=== PATIENT | female | born 1965 | race Caucasian/White ===

== ENCOUNTER 2019-07-20 23:15 | Observation (INO) | payer OTHER ==
[~2019-07-20] VITALS: Ht 172.7 cm; Wt 147.6 kg
[~2019-07-20 23:15] MED LIST: ALBU90OI INH; AMOCLA875 PO; AMOX500 PO; AMOX875 PO; CRUTCH3 USE; DICL25ER PO; DOXY100 PO; HYDACE5 PO; HYDACE5325 PO; LEVSOD25 PO; MODA200 PO; OXYACE5T PO; SULTRISS PO
[2019-07-20 23:52] LABS: BASOPHILS ABSOLUTE AUTO 0.04 K/mm3 (0.00-0.23); BASOPHILS PERCENT AUTO 0 % (0-2); EOSINOPHILS ABSOLUTE AUTO 0.29 K/mm3 (0.00-0.68); EOSINOPHILS PERCENT AUTO 2 % (0-6); Hematocrit 46.1 % (33.0-51.0); Hemoglobin 14.8 g/dL (11.5-16.0); IMMATURE GRAN ABSOLUTE AUTO 0.05 K/mm3 (0.00-0.10); IMMATURE GRAN PERCENT AUTO 0 % (0-1); LYMPHOCYTES ABSOLUTE AUTO 3.82 K/mm3 (0.84-5.20); LYMPHOCYTES PERCENT AUTO 27 % (21-46); MONOCYTES ABSOLUTE AUTO 0.81 K/mm3 (0.16-1.47); MONOCYTES PERCENT AUTO 6 % (4-13); Mean Corpuscular HGB 29.1 pg (26.0-34.0); Mean Corpuscular HGB Conc 32.1 g/dL (31.5-36.5); Mean Corpuscular Volume 91 fL (80-100); Mean Platelet Volume 10.7 fL (9.1-12.4); NEUTROPHILS ABSOLUTE AUTO 9.12 K/mm3 (1.96-9.15); NEUTROPHILS PERCENT AUTO 65 % (41-73); Platelet Count 290 K/mm3 (150-400); RDW Coefficient Variation 13.4 % (11.7-14.2); RDW Standard Deviation 44.4 fL (35.1-46.3); Red Blood Cell Count 5.08 M/mm3 (3.80-5.20); White Blood Cell Count 14.13 K/mm3 (4.00-11.30)
[2019-07-21 00:13] LABS: Alanine Aminotransfer (ALT/SGP 32 U/L (12-78); Albumin, Blood 3.5 g/dL (3.4-5.0); Albumin/Globulin Ratio 0.6 (0.8-1.8); Alk Phos 135 U/L (50-136); Anion Gap 6 mmol/L (6-16); Aspartate Aminotrans (AST/SGOT 23 U/L (12-37); Bilirubin, Total 0.4 mg/dL (0.1-1.0); Blood Urea Nitrogen 14 mg/dL (8-24); Bun/Creatinine Ratio 29.1 (12.0-20.0); CO2, Blood 29 mmol/L (21-32); Calcium, Blood 9.5 mg/dL (8.5-10.1); Chloride, Blood 100 mmol/L (98-108); Creatinine, Blood 0.48 mg/dL (0.40-1.00); Globulin, Blood 5.6 g/dL (2.2-4.0); Glomerular Filtration Rate >60 (60-); Glucose, Blood 273 mg/dL (70-99); Potassium, Blood 4.1 mmol/L (3.5-5.5); Sodium, Blood 135 mmol/L (136-145); Total Protein, Blood 9.1 g/dL (6.4-8.2)
[2019-07-21 03:34] LABS: Source, Urine Clean Catch
[2019-07-21 03:36] LABS: Appearance, Urine Clear (Clear); Bilirubin, Urine Neg (Neg); Blood, Urine 1+ (Neg); Color, Urine Yellow (P-Yellow); Glucose Qualitative, Urine 4+ (Neg); Ketones, Urine 1+ (Neg); Leukocyte Esterase, Urine 1+ (Neg); Nitrite, Urine Neg (Neg); Protein, Urine 2+ (Neg); Urobilinogen, Urine NORM (Normal)
[2019-07-21 03:42] LABS: Bacteria Many /hpf; Mucus Light (0-Heavy); Red Blood Cells, Urine 0-2 /hpf (0-2); Squamous Epithelial Cells Mod /hpf (Few)
[2019-07-21] MEDS ORDERED: METFORMIN HCL1000 M1 PO (05:32)
[2019-07-21] MEDS ORDERED: INSULIN SC (05:32)
[2019-07-21] MEDS ORDERED: LEVOTHYROXINE SODIUM PO (05:33)
--- NOTE | 2019-07-21 07:58 | NUR ---
PT NEW ADMIT THIS SHIFT FOR ACUTE VICKY. PT REP PAIN DOM, NO C/O N/V. PT NPO SINCE ARRIVING TO FLOOR, SURGEON IN TO SEE PT THIS AM. REPORT GIVEN TO DAY RN.
[2019-07-21] MEDS ORDERED: BASAGLAR K100 UNIT/2 SC (10:52)
[2019-07-21] MEDS ORDERED: METFORMIN HCL500 MG PO (10:53)
[2019-07-21] MEDS ORDERED: GLIP10 PO (10:53)
[2019-07-21] MEDS ORDERED: SYNTHROID150 MC1 PO (10:54)
--- NOTE | 2019-07-21 21:38 | NUR ---
SPOKE TO DR STEPHENSON R/T PATIENT REPORTS OF PAIN MANAGEMENT NOT BEING EFFECTIVE. NEW ORDERS FOR DILAUDID AND ONE TIME DOSE OF TORODOL GIVEN. WILL ADMINISTER AND MONITOR FOR EFFECT
--- NOTE | 2019-07-22 04:07 | NUR ---
SHIFT SUMMARY PT AA0X4, VSS. PATIENT HAS BEEN RESTING IN BED, TOLERATING NEW PAIN MEDS WELL. STATES RELIEF. NPO SINCE MIDNIGHT, PT HAS BEEN VOIDING DURING SHIFT. PAIN IS LOCATED IN HER RIGHT FLANK/ BACK. PLAN IS TO POSSIBLY GO TO OR AT SOME POINT TODAY.
[2019-07-22 04:53] LABS: BASOPHILS ABSOLUTE AUTO 0.03 K/mm3 (0.00-0.23); BASOPHILS PERCENT AUTO 0 % (0-2); EOSINOPHILS ABSOLUTE AUTO 0.26 K/mm3 (0.00-0.68); EOSINOPHILS PERCENT AUTO 3 % (0-6); Hematocrit 40.3 % (33.0-51.0); IMMATURE GRAN ABSOLUTE AUTO 0.03 K/mm3 (0.00-0.10); IMMATURE GRAN PERCENT AUTO 0 % (0-1); LYMPHOCYTES ABSOLUTE AUTO 3.58 K/mm3 (0.84-5.20); LYMPHOCYTES PERCENT AUTO 36 % (21-46); MONOCYTES ABSOLUTE AUTO 0.62 K/mm3 (0.16-1.47); MONOCYTES PERCENT AUTO 6 % (4-13); Mean Corpuscular HGB 29.3 pg (26.0-34.0); Mean Corpuscular HGB Conc 32.3 g/dL (31.5-36.5); Mean Corpuscular Volume 91 fL (80-100); Mean Platelet Volume 10.5 fL (9.1-12.4); NEUTROPHILS ABSOLUTE AUTO 5.47 K/mm3 (1.96-9.15); NEUTROPHILS PERCENT AUTO 55 % (41-73); Platelet Count 245 K/mm3 (150-400); RDW Coefficient Variation 13.5 % (11.7-14.2); RDW Standard Deviation 45.3 fL (35.1-46.3); Red Blood Cell Count 4.43 M/mm3 (3.80-5.20); White Blood Cell Count 9.99 K/mm3 (4.00-11.30)
[2019-07-22 05:12] LABS: Alanine Aminotransfer (ALT/SGP 32 U/L (12-78); Albumin, Blood 2.9 g/dL (3.4-5.0); Albumin/Globulin Ratio 0.6 (0.8-1.8); Alk Phos 99 U/L (50-136); Anion Gap 6 mmol/L (6-16); Aspartate Aminotrans (AST/SGOT 23 U/L (12-37); Bilirubin, Total 0.7 mg/dL (0.1-1.0); Blood Urea Nitrogen 10 mg/dL (8-24); Bun/Creatinine Ratio 21.3 (12.0-20.0); CO2, Blood 28 mmol/L (21-32); Calcium, Blood 9.1 mg/dL (8.5-10.1); Chloride, Blood 104 mmol/L (98-108); Creatinine, Blood 0.47 mg/dL (0.40-1.00); Globulin, Blood 4.7 g/dL (2.2-4.0); Glomerular Filtration Rate >60 (60-); Glucose, Blood 229 mg/dL (70-99); Potassium, Blood 4.1 mmol/L (3.5-5.5); Sodium, Blood 138 mmol/L (136-145); Total Protein, Blood 7.6 g/dL (6.4-8.2)
--- NOTE | 2019-07-22 11:19 | NUR ---
INTO [facility] VIA Scrip[facility]t. HISTORY AND ALLERGIES REVIEWED. NPO STATUS CONFIRMED. LUNG SOUNDS DISTANT. SATS>90% ON RA. Surgical site prepped with 2% Chlorhexidine cloth wipe.
--- NOTE | 2019-07-22 11:24 | NUR ---
YEAST LIKE RASH NOTED UNDER PT PANUS WHEN WIPING ABDOMEN WITH CHLORHEXIDINE.
--- NOTE | 2019-07-22 16:21 | NUR ---
DENTURES SENT TO ROOM AFTER PACU STAY.
--- NOTE | 2019-07-22 18:11 | NUR ---
SHIFT SUMMARY PT A&OX4, VSS, S/P VICKY WITH 5 LAP SITES CDI. PAIN MANAGED WITH 0.5 - 1.0 MG DILAUDID Q3 PRN. DOM PO DIET, DENIES N&V AT THIS TIME. AMBULATED TO BRP WITH SBA. VOIDING WELL. FAMILY AT BEDSIDE. WILL REPORT TO ONCOMING NOC RN.
--- NOTE | 2019-07-23 04:09 | NUR ---
SHIFT SUMMARY PT IS A/O X4. AMBULATES IND. IN BEDROOM WITH MINIMAL ASSIST AT TIMES. PT IS TOLERATING PO INTAKE AND IS VOIDING AND PASSING GAS. BENITEZ DRAIN DRESSING WAS CHANGED D/T SATURATION. PAIN HAS BEEN MANAGED WITH 1.5-1MG DILAUDED PRN, SEE EMAR. DAUGHTER STAYED THE NIGHT IN PT ROOM. ASSISTED WITH ADL'S PRN.
[2019-07-23] MEDS ORDERED: HYDR1TAB94 PO (09:03)
--- NOTE | 2019-07-23 09:23 | NUR ---
0920 - 5 MG NORCO GIVEN TO PT JUST PT WAS TAKEN OUT OF COMPUTER FOR DISCHARGE HOME, COMPUTER WOULD NOT LET ME DOCUMENT GIVEN. VERIFIED WITH DEION RAYO RN.
--- NOTE | 2019-07-23 09:28 | NUR ---
DISCHARGE SUMMARY PT A&OX4, VSS, LEFT FLOOR VIA WC WITH DAUGHTER TO GO HOME WITH PERSONAL POSSESSIONS INCLUDING DC PACKET AND 1 NORCO SCRIPT. DC INSTRUCTIONS PROVIDED. PT REPORTED UNDERSTANDING THOSE INSTRUCTIONS INCLUDING SHOWER OKAY, NO TUB/JACUZZI, LEAVE STERIS IN PLACE- THEY WILL COME OFF ON THEIR OWN IN 7-10 DAYS OTHERWISE SURGEON WILL REMOVE THEM AT 2 WEEK APPT. IV DC'D.
== END 2019-07-23 09:16 | disposition home or self-care (01) ==
LOC: ER 23:15 → MEDS 23:16 → SURS 23:16 → MEDS 07-21 05:04 → ER 07-21 05:04 → MEDS 07-21 06:00 → SURS 07-21 06:00
PROVIDERS: Emergency Medicine; ADMIT Surgery
PROC: 0FT44ZZ Resection of Gallbladder, Percutaneous Endoscopic Approach (ICD-10-PCS; principal; 2019-07-22 11:30)
DX: K80.00 Calculus of gallbladder with acute cholecystitis without obstruction (principal); E11.9 Type 2 diabetes mellitus without complications; E03.9 Hypothyroidism, unspecified; G47.30 Sleep apnea, unspecified; E66.01 Morbid (severe) obesity due to excess calories; Z68.43 Body mass index [BMI] 50.0-59.9, adult; Z79.4 Long term (current) use of insulin; Z88.1 Allergy status to other antibiotic agents; Z79.899 Other long term (current) drug therapy
CPT/HCPCS: 36415; 74176; 76705; 80053; 81001; 82947; 83690; 85025; 87086; 88304; 93005; 93010; 94762; 96361; 96365; 96375; 96376; 99285-25; A9270-GY; G0378; J0694; J1170; J1815; J1885; J2250; J2270; J2405; J2543; J2704; J3010; J7030; J7120

== ENCOUNTER → 2020-05-07 | Outpatient (CLI) | payer OTHER ==
[~2020-05-07] MED LIST changes: +BASAGLAR K100 UNIT/2 SC; +GLIP10 PO; +HYDR1TAB94 PO; +INSULIN SC; +LEVOTHYROXINE SODIUM PO; +METFORMIN HCL1000 M1 PO; +METFORMIN HCL500 MG PO; +SYNTHROID150 MC1 PO
== END | disposition home or self-care (01) ==
LOC: LAB SHORT 14:26 → LAB 14:26
DX: L04.8 Acute lymphadenitis of other sites (principal)
CPT/HCPCS: 87081

== ENCOUNTER 2021-01-28 12:53 | Emergency (ER) | payer OTHER ==
[~2021-01-28] VITALS: Ht 172.7 cm; Wt 170.1 kg
[~2021-01-28 12:53] MED LIST changes: +BASAGLAR K100 UNIT/1 SC; -BASAGLAR K100 UNIT/2 SC; +Bactrim Ds Tab1 EACH PO; +HUMALOG JU100 UNIT/2; +Norco 5-325 Ta1 EACH PO; +Percocet 5-3251 EACH PO
[2021-01-28 13:21] LABS: BASOPHILS ABSOLUTE AUTO 0.03 K/mm3 (0.00-0.23); BASOPHILS PERCENT AUTO 0 % (0-2); EOSINOPHILS PERCENT AUTO 1 % (0-6); Hematocrit 40.9 % (33.0-51.0); Hemoglobin 13.1 g/dL (11.5-16.0); IMMATURE GRAN ABSOLUTE AUTO 0.03 K/mm3 (0.00-0.10); IMMATURE GRAN PERCENT AUTO 0 % (0-1); LYMPHOCYTES ABSOLUTE AUTO 3.04 K/mm3 (0.84-5.20); LYMPHOCYTES PERCENT AUTO 27 % (21-46); MONOCYTES ABSOLUTE AUTO 0.77 K/mm3 (0.16-1.47); MONOCYTES PERCENT AUTO 7 % (4-13); Mean Corpuscular Volume 84 fL (80-100); Mean Platelet Volume 9.8 fL (9.1-12.4); NEUTROPHILS ABSOLUTE AUTO 7.47 K/mm3 (1.96-9.15); NEUTROPHILS PERCENT AUTO 65 % (41-73); Platelet Count 326 K/mm3 (150-400); RDW Coefficient Variation 14.9 % (11.7-14.2); RDW Standard Deviation 45.7 fL (35.1-46.3); Red Blood Cell Count 4.86 M/mm3 (3.80-5.20); White Blood Cell Count 11.44 K/mm3 (4.00-11.30)
[2021-01-28 13:41] LABS: Alanine Aminotransfer (ALT/SGP 18 U/L (12-78); Albumin/Globulin Ratio 0.4 (0.8-1.8); Alk Phos 123 U/L (50-136); Anion Gap 5 mmol/L (6-16); Aspartate Aminotrans (AST/SGOT 16 U/L (12-37); Bilirubin, Total 0.5 mg/dL (0.1-1.0); Blood Urea Nitrogen 14 mg/dL (8-24); Bun/Creatinine Ratio 18.1 (12.0-20.0); CO2, Blood 25 mmol/L (21-32); Calcium, Blood 10.3 mg/dL (8.5-10.1); Chloride, Blood 100 mmol/L (98-108); Creatinine, Blood 0.78 mg/dL (0.40-1.00); Globulin, Blood 7.2 g/dL (2.2-4.0); Glomerular Filtration Rate >60 (60-); Glucose, Blood 245 mg/dL (70-99); Potassium, Blood 4.2 mmol/L (3.5-5.5); Sodium, Blood 130 mmol/L (136-145); Total Protein, Blood 10.2 g/dL (6.4-8.2)
[2021-01-28] MEDS ORDERED: Percocet 5-3251 EACH PO (18:27)
== END 2021-01-28 18:33 | disposition home or self-care (01) ==
LOC: ER 12:53
PROVIDERS: Physician Assistant
DX: E11.621 Type 2 diabetes mellitus with foot ulcer (principal); L97.529 Non-pressure chronic ulcer of other part of left foot with unspecified severity; L03.116 Cellulitis of left lower limb; Z91.030 Bee allergy status; Z88.1 Allergy status to other antibiotic agents; Z79.4 Long term (current) use of insulin
CPT/HCPCS: 36415; 80053; 85025; 99283

== ENCOUNTER 2021-05-09 11:43 | Emergency (ER) | payer OTHER ==
[~2021-05-09] VITALS: Ht 170.2 cm; Wt 158.8 kg
[~2021-05-09 11:43] MED LIST changes: +BACTRIM DS TAB1 EAC6 PO
[2021-05-09 12:36] LABS: BASOPHILS ABSOLUTE AUTO 0.04 K/mm3 (0.00-0.23); BASOPHILS PERCENT AUTO 0 % (0-2); EOSINOPHILS PERCENT AUTO 0 % (0-6); Hematocrit 38.3 % (33.0-51.0); Hemoglobin 12.6 g/dL (11.5-16.0); IMMATURE GRAN ABSOLUTE AUTO 0.09 K/mm3 (0.00-0.10); IMMATURE GRAN PERCENT AUTO 1 % (0-1); LYMPHOCYTES ABSOLUTE AUTO 1.57 K/mm3 (0.84-5.20); LYMPHOCYTES PERCENT AUTO 11 % (21-46); MONOCYTES ABSOLUTE AUTO 1.08 K/mm3 (0.16-1.47); MONOCYTES PERCENT AUTO 7 % (4-13); Mean Corpuscular HGB 26.9 pg (26.0-34.0); Mean Corpuscular HGB Conc 32.9 g/dL (31.5-36.5); Mean Corpuscular Volume 82 fL (80-100); NEUTROPHILS ABSOLUTE AUTO 11.91 K/mm3 (1.96-9.15); NEUTROPHILS PERCENT AUTO 81 % (41-73); Platelet Count 185 K/mm3 (150-400); RDW Coefficient Variation 15.3 % (11.7-14.2); RDW Standard Deviation 45.7 fL (35.1-46.3); Red Blood Cell Count 4.68 M/mm3 (3.80-5.20); White Blood Cell Count 14.69 K/mm3 (4.00-11.30)
[2021-05-09 12:49] LABS: Alanine Aminotransfer (ALT/SGP 21 U/L (12-78); Albumin, Blood 2.6 g/dL (3.4-5.0); Albumin/Globulin Ratio 0.4 (0.8-1.8); Alk Phos 100 U/L (50-136); Anion Gap 10 mmol/L (6-16); Aspartate Aminotrans (AST/SGOT 40 U/L (12-37); Bilirubin, Total 0.6 mg/dL (0.1-1.0); Blood Urea Nitrogen 16 mg/dL (8-24); Bun/Creatinine Ratio 21.3 (12.0-20.0); CO2, Blood 25 mmol/L (21-32); Calcium, Blood 8.7 mg/dL (8.5-10.1); Chloride, Blood 92 mmol/L (98-108); Creatinine, Blood 0.75 mg/dL (0.40-1.00); Globulin, Blood 6.3 g/dL (2.2-4.0); Glomerular Filtration Rate >60 (60-); Glucose, Blood 163 mg/dL (70-99); Potassium, Blood 3.4 mmol/L (3.5-5.5); Sodium, Blood 127 mmol/L (136-145); Total Protein, Blood 8.9 g/dL (6.4-8.2)
[2021-05-10] MEDS ORDERED: GLIP10ER PO (19:25)
[2021-05-10] MEDS ORDERED: Oxybutynin Chlor5 M1 PO (19:25)
== END 2021-05-09 15:19 | disposition home or self-care (01) ==
LOC: ER 11:43
PROVIDERS: Emergency Medicine
DX: E11.621 Type 2 diabetes mellitus with foot ulcer (principal); L97.529 Non-pressure chronic ulcer of other part of left foot with unspecified severity; B96.89 Other specified bacterial agents as the cause of diseases classified elsewhere; E03.9 Hypothyroidism, unspecified; Z91.030 Bee allergy status; Z88.1 Allergy status to other antibiotic agents; Z79.899 Other long term (current) drug therapy; Z79.4 Long term (current) use of insulin
CPT/HCPCS: 36415; 80053; 85025; 96365; 96366; 99281-25; A9270; J3370; J7050

== ENCOUNTER 2021-05-10 17:07 | Inpatient (IN) | payer OTHER ==
[~2021-05-10] VITALS: Ht 170.2 cm; Wt 157.0 kg
[2021-05-10 18:09] LABS: BASOPHILS ABSOLUTE AUTO 0.04 K/mm3 (0.00-0.23); BASOPHILS PERCENT AUTO 0 % (0-2); EOSINOPHILS PERCENT AUTO 0 % (0-6); Hematocrit 38.4 % (33.0-51.0); Hemoglobin 12.7 g/dL (11.5-16.0); IMMATURE GRAN ABSOLUTE AUTO 0.09 K/mm3 (0.00-0.10); IMMATURE GRAN PERCENT AUTO 1 % (0-1); LYMPHOCYTES PERCENT AUTO 13 % (21-46); MONOCYTES ABSOLUTE AUTO 1.11 K/mm3 (0.16-1.47); MONOCYTES PERCENT AUTO 7 % (4-13); Mean Corpuscular HGB 27.1 pg (26.0-34.0); Mean Corpuscular HGB Conc 33.1 g/dL (31.5-36.5); Mean Corpuscular Volume 82 fL (80-100); Mean Platelet Volume 11.4 fL (9.1-12.4); NEUTROPHILS PERCENT AUTO 79 % (41-73); Platelet Count 206 K/mm3 (150-400); RDW Coefficient Variation 15.7 % (11.7-14.2); RDW Standard Deviation 46.8 fL (35.1-46.3); Red Blood Cell Count 4.68 M/mm3 (3.80-5.20); White Blood Cell Count 15.64 K/mm3 (4.00-11.30)
[2021-05-10 18:18] LABS: Alanine Aminotransfer (ALT/SGP 30 U/L (12-78); Albumin, Blood 2.3 g/dL (3.4-5.0); Albumin/Globulin Ratio 0.4 (0.8-1.8); Alk Phos 110 U/L (50-136); Anion Gap 10 mmol/L (6-16); Aspartate Aminotrans (AST/SGOT 66 U/L (12-37); Bilirubin, Total 0.9 mg/dL (0.1-1.0); Blood Urea Nitrogen 11 mg/dL (8-24); Bun/Creatinine Ratio 12.8 (12.0-20.0); CO2, Blood 22 mmol/L (21-32); Calcium, Blood 8.9 mg/dL (8.5-10.1); Chloride, Blood 93 mmol/L (98-108); Creatinine, Blood 0.86 mg/dL (0.40-1.00); Globulin, Blood 6.4 g/dL (2.2-4.0); Glomerular Filtration Rate >60 (60-); Glucose, Blood 101 mg/dL (70-99); Potassium, Blood 3.6 mmol/L (3.5-5.5); Sodium, Blood 125 mmol/L (136-145); Total Protein, Blood 8.7 g/dL (6.4-8.2)
[2021-05-10] MEDS ORDERED: Oxybutynin Chlor5 M1 PO (19:25)
[2021-05-10] MEDS ORDERED: GLIP10ER PO (19:25)
[2021-05-10 21:37] LABS: SARS-Cov-2 (COVID-19) PCR, MMC NEGATIVE (NEGATIVE)
[2021-05-11 00:01] LABS: Source, Urine Clean Catch
[2021-05-11 00:03] LABS: Bilirubin, Urine Neg (Neg); Blood, Urine 5+ (Neg); Glucose Qualitative, Urine Neg (Neg); Ketones, Urine Neg (Neg); Leukocyte Esterase, Urine 1+ (Neg); Nitrite, Urine Neg (Neg); Protein, Urine 2+ (Neg); Urobilinogen, Urine 2+ (Normal)
[2021-05-11 00:18] LABS: Appearance, Urine Hazy (Clear); Bacteria Mod /hpf; Color, Urine Yellow (P-Yellow); Squamous Epithelial Cells Many /hpf (Few)
[2021-05-11 04:49] LABS: BASOPHILS ABSOLUTE AUTO 0.04 K/mm3 (0.00-0.23); BASOPHILS PERCENT AUTO 0 % (0-2); EOSINOPHILS PERCENT AUTO 0 % (0-6); Hematocrit 35.5 % (33.0-51.0); Hemoglobin 11.6 g/dL (11.5-16.0); IMMATURE GRAN ABSOLUTE AUTO 0.11 K/mm3 (0.00-0.10); IMMATURE GRAN PERCENT AUTO 1 % (0-1); LYMPHOCYTES ABSOLUTE AUTO 2.82 K/mm3 (0.84-5.20); LYMPHOCYTES PERCENT AUTO 18 % (21-46); MONOCYTES ABSOLUTE AUTO 1.21 K/mm3 (0.16-1.47); MONOCYTES PERCENT AUTO 8 % (4-13); Mean Corpuscular HGB 26.9 pg (26.0-34.0); Mean Corpuscular HGB Conc 32.7 g/dL (31.5-36.5); Mean Corpuscular Volume 82 fL (80-100); NEUTROPHILS ABSOLUTE AUTO 11.77 K/mm3 (1.96-9.15); NEUTROPHILS PERCENT AUTO 74 % (41-73); Platelet Count 229 K/mm3 (150-400); RDW Coefficient Variation 15.5 % (11.7-14.2); RDW Standard Deviation 46.9 fL (35.1-46.3); Red Blood Cell Count 4.32 M/mm3 (3.80-5.20); White Blood Cell Count 15.95 K/mm3 (4.00-11.30)
[2021-05-11 05:15] LABS: Alanine Aminotransfer (ALT/SGP 32 U/L (12-78); Albumin, Blood 2.2 g/dL (3.4-5.0); Albumin/Globulin Ratio 0.4 (0.8-1.8); Alk Phos 107 U/L (50-136); Anion Gap 9 mmol/L (6-16); Aspartate Aminotrans (AST/SGOT 64 U/L (12-37); Bilirubin, Total 0.7 mg/dL (0.1-1.0); Blood Urea Nitrogen 10 mg/dL (8-24); Bun/Creatinine Ratio 11.3 (12.0-20.0); CO2, Blood 26 mmol/L (21-32); Calcium, Blood 8.3 mg/dL (8.5-10.1); Chloride, Blood 93 mmol/L (98-108); Creatinine, Blood 0.88 mg/dL (0.40-1.00); Globulin, Blood 6.2 g/dL (2.2-4.0); Glomerular Filtration Rate >60 (60-); Glucose, Blood 83 mg/dL (70-99); Potassium, Blood 3.4 mmol/L (3.5-5.5); Sodium, Blood 128 mmol/L (136-145); Thyroid Stimulating Hormone 0.134 uIU/mL (0.360-4.800); Total Protein, Blood 8.4 g/dL (6.4-8.2)
--- NOTE | 2021-05-11 05:57 | NUR ---
SHIFT SUMMARY PT AAOX4. REQUIRED 1-2 PERSON ASSIST TO BEDSIDE COMMODE. PT HAS LOWER EXTREMITIES WEAKNESS. RECEIVING ANTIBIOTICS FOR CELLULITIS. NO SIGNIFICANT CHANGES THROUGHOUT SHIFT.
--- NOTE | 2021-05-11 18:45 | NUR ---
SHIFT SUMMARY PT UP TO BSC SEVERAL TIMES TODAY. REPORTS BACK PAIN THAT HAS ONLY DEVELOPED SINCE INFECTION OF L 2ND TOE. STATES MUCH WEAKER THAN NORMAL WELL. POOR APPETITE PER PT. REPORTS NOT BEING ABLE TO LAY DOWN FULLY DUE TO BACK PT AND FEELING SOB. DRESSING APPLIED TO L TOE FOR PTS COMFORT BUT REMOVED BY DR. RAPHAEL WHEN HE ARRIVED TO LOOK AT IT. PT REPORTS PLAN IS TO REMOVE TOE ON MONDAY.
[2021-05-12 05:00] LABS: BASOPHILS ABSOLUTE AUTO 0.03 K/mm3 (0.00-0.23); BASOPHILS PERCENT AUTO 0 % (0-2); EOSINOPHILS ABSOLUTE AUTO 0.01 K/mm3 (0.00-0.68); EOSINOPHILS PERCENT AUTO 0 % (0-6); Hematocrit 34.7 % (33.0-51.0); Hemoglobin 11.1 g/dL (11.5-16.0); Mean Corpuscular HGB 26.5 pg (26.0-34.0); Mean Corpuscular Volume 83 fL (80-100); Platelet Count 221 K/mm3 (150-400); RDW Coefficient Variation 15.8 % (11.7-14.2); RDW Standard Deviation 47.8 fL (35.1-46.3); Red Blood Cell Count 4.19 M/mm3 (3.80-5.20); White Blood Cell Count 14.14 K/mm3 (4.00-11.30)
[2021-05-12 05:02] LABS: IMMATURE GRAN ABSOLUTE AUTO 0.17 K/mm3 (0.00-0.10); IMMATURE GRAN PERCENT AUTO 1 % (0-1); LYMPHOCYTES ABSOLUTE AUTO 3.38 K/mm3 (0.84-5.20); LYMPHOCYTES PERCENT AUTO 24 % (21-46); MONOCYTES PERCENT AUTO 8 % (4-13); NEUTROPHILS ABSOLUTE AUTO 9.45 K/mm3 (1.96-9.15); NEUTROPHILS PERCENT AUTO 67 % (41-73)
[2021-05-12 05:18] LABS: Anion Gap 10 mmol/L (6-16); Blood Urea Nitrogen 10 mg/dL (8-24); CO2, Blood 26 mmol/L (21-32); Chloride, Blood 95 mmol/L (98-108); Creatinine, Blood 0.77 mg/dL (0.40-1.00); Glomerular Filtration Rate >60 (60-); Glucose, Blood 136 mg/dL (70-99); Phosphorus, Blood 3.5 mg/dL (2.5-4.9); Potassium, Blood 3.7 mmol/L (3.5-5.5); Sodium, Blood 131 mmol/L (136-145)
--- NOTE | 2021-05-12 12:30 | NUR ---
TENTATIVE SURGERY TO L 2ND TOE THIS AFTERNOON. SPOKE WITH DR. RAPHAEL WITH ANTICIPATION FOR SURGERY. NOTIFIED PT AND SHE WAS RELIEVED TO KNOW THE PLAN
--- NOTE | 2021-05-12 15:30 | NUR ---
PT TRANSFERRED TO [facility] VIA BED FROM FLOOR. History, Chart, Medications and Allergies reviewed before start of procedure. Lungs clear T/O to Auscultation. Patient confirms NPO status and agrees with scheduled surgery. Pre-Op teaching done. Pt verbalizes understanding.
--- NOTE | 2021-05-12 19:00 | NUR ---
ASSUMED CARE RECEIVED REPORT FROM [place]. PT RESTING, IN NAD. NO ACUTE NEEDS ASSESSED AT THIS TIME. CALL LIGHT, POSSESSIONS IN REACH, BED IN LOW AND LOCKED POSITION WITH ALARMS ON. DRSG TO LT FOOT C/D/I, NO DRAINAGE NOTED; PT DROWSY, BUT AROUSABLE. IV REMOVED PER PT REQUEST.
--- NOTE | 2021-05-12 19:38 | NUR ---
SHIFT SUMMARY PT TO SURGERY THIS AFTERNOON AT APPROX 1530 BY BED AND RETURNED AT 1830. VITAL SIGNS STARTED. PT REQUESTING BED BRUNNER IMMEDIATELY AND CALLING HER FAMILY. DRESSING INTACT TO L FOOT WITH NO BREAKTHROUGH DRAINAGE NOTED.
--- NOTE | 2021-05-13 00:06 | NUR ---
SPOKE TO DR. JETT REGARDING PT'S C/O PAIN AND REQUEST FOR FENTANYL PATCH. ORDERS RECEIVED. SHORTLY AFTER ORDERS WERE ENTERED, THIS RN CALLED BY JONATHAN, PHARMACIST, TO CLARIFY. STATED THAT PT IS CONSIDERED OPIOID NAIVE, AND THAT MEDICATION IS CONTRAINDICATED. ORDERS CANCELLED PER PHARMACIST.
[2021-05-13 05:49] LABS: BASOPHILS ABSOLUTE AUTO 0.02 K/mm3 (0.00-0.23); BASOPHILS PERCENT AUTO 0 % (0-2); EOSINOPHILS PERCENT AUTO 0 % (0-6); Hematocrit 31.2 % (33.0-51.0); Hemoglobin 10.2 g/dL (11.5-16.0); Mean Corpuscular HGB 26.8 pg (26.0-34.0); Mean Corpuscular HGB Conc 32.7 g/dL (31.5-36.5); Mean Corpuscular Volume 82 fL (80-100); Mean Platelet Volume 11.1 fL (9.1-12.4); Platelet Count 255 K/mm3 (150-400); RDW Coefficient Variation 15.9 % (11.7-14.2); RDW Standard Deviation 47.6 fL (35.1-46.3); White Blood Cell Count 9.72 K/mm3 (4.00-11.30)
[2021-05-13 05:50] LABS: IMMATURE GRAN ABSOLUTE AUTO 0.16 K/mm3 (0.00-0.10); IMMATURE GRAN PERCENT AUTO 2 % (0-1); LYMPHOCYTES ABSOLUTE AUTO 1.71 K/mm3 (0.84-5.20); LYMPHOCYTES PERCENT AUTO 18 % (21-46); MONOCYTES ABSOLUTE AUTO 0.69 K/mm3 (0.16-1.47); MONOCYTES PERCENT AUTO 7 % (4-13); NEUTROPHILS ABSOLUTE AUTO 7.14 K/mm3 (1.96-9.15); NEUTROPHILS PERCENT AUTO 74 % (41-73)
[2021-05-13 06:13] LABS: Anion Gap 7 mmol/L (6-16); Blood Urea Nitrogen 13 mg/dL (8-24); Bun/Creatinine Ratio 19.1 (12.0-20.0); CO2, Blood 24 mmol/L (21-32); Calcium, Blood 8.1 mg/dL (8.5-10.1); Chloride, Blood 98 mmol/L (98-108); Creatinine, Blood 0.68 mg/dL (0.40-1.00); Glomerular Filtration Rate >60 (60-); Glucose, Blood 290 mg/dL (70-99); Potassium, Blood 4.3 mmol/L (3.5-5.5); Sodium, Blood 129 mmol/L (136-145)
--- NOTE | 2021-05-13 06:41 | NUR ---
SHIFT SUMMARY PT RESTING, IN NAD. NO ACUTE CONCERNS TO REPORT OVERNIGHT, APPEARED TO SLEEP ON AND OFF. POD 1 LT 2ND TOE AMPUTATION. DRSG REMAINS C/D/I, NO DRAINAGE NOTED, SKIN PINK AND WARM, CAP REFILL <3 SECONDS. SENSATION INTACT. PAIN MANAGED WITH MEDS PER EMAR,WITH GOOD EFFECT. VS REVIEWED,WNL, BP'S AND O2 SATS STABLE. PT DENIES NEEDS AT THIS TIME. CALL LIGHT, POSSESSIONS IN REACH, BED IN LOW AND LOCKED POSITION WITH ALARMS ON. IVF INFUSING ORDERED. WILL REPORT OFF TO ONCOMING RN.
[2021-05-13 07:40] LABS: BAND PERCENT MAN 1 % (0-8); BASOPHILS PERCENT MAN 0 % (0-2); EOSINOPHILS PERCENT MAN 0 % (0-6); LYMPHOCYTES ABSOLUTE MAN 1.94 K/mm3 (0.84-5.20); LYMPHOCYTES PERCENT MAN 20 % (21-46); MONOCYTES ABSOLUTE MAN 0.97 K/mm3 (0.16-1.47); MONOCYTES PERCENT MAN 10 % (4-13); SEG NEUTROPHILS PERCENT MAN 69 % (41-73); TOTAL CELLS COUNTED 100
--- NOTE | 2021-05-13 17:17 | NUR ---
SHIFT SUMMARY PT SITTING UP IN BED MOST OF DAY. REPORTS LOWER BACK DISCOMFORT CONTINUES. KPAD APPLIED THIS AFTERNOON PER HER REQUEST. DRESSING TO L TOE REPLACED BY DR. RAPHAEL TODAY WITH INSTRUCTIONS GIVEN TO PT ON HOME CARE. DID HAVE STRIKE THROUGH DRAINAGE AFTER MD CHANGED DRESSING AND WAS REINFORCED. WT BEARING CHANGED AND TRANSFERRED TO COMMODE TO VOID. DISCHARGE PLANNED WHEN IV MEDS READY FOR HOME USE.
--- NOTE | 2021-05-13 19:00 | NUR ---
ASSUMED CARE RECEIVED REPORT FROM [place]. PT RESTING, IN NAD. NO ACUTE NEEDS ASSESSED AT THIS TIME. CALL LIGHT, POSSESSIONS IN REACH, BED IN LOW AND LOCKED POSITION WITH ALARMS ON.
--- NOTE | 2021-05-14 00:10 | NUR ---
THIS RN IN PT ROOM INQUIRING PT REGARDING USE OF PAIN PATCHES AT HOME. PT STATES "I USE IT ON MY KNEE, AND IT COMES IN A WHITE BOX FROM THE [facility]." WHEN ASKED ABOUT THE STRENGTH OF THE MEDICATION, PT WAS UNSURE OF DOSAGE STRENGTH. ON FURTHER QUESTIONING, PT RECALLS THAT PATCH WAS SOFT AND WHITE, APPEARS TO RECALL THE NAME "LIDOCAINE" THE PATCH THAT SHE USES AT HOME. VERIFIED WITH PT'S HOME MEDICATION RECONCILIATION. WILL INFORM DAY RN OF PT'S REQUEST.
--- NOTE | 2021-05-14 04:21 | NUR ---
SHIFT SUMMARY PT RESTING, IN NAD. NO ACUTE CONCERNS TO REPORT OVERNIGHT. PAIN MANAGED WITH MEDS PER EMAR, WITH GOOD EFFECT. DRSG TO LT FOOT REMAINS C/D/I, NO DRAINAGE NOTED. SKIN PINK AND WARM, SENSATION INTACT, CAP REFILL <3 SECONDS. WBAT TO LLE, 1 PERSON ASSIST TO BSC. NO ACUTE NEEDS ASSESSED AT THIS TIME. CALL LIGHT, POSSESSIONS IN REACH, BED IN LOW AND LOCKED POSITION WITH ALARMS ON. WILL CONTINUE TO PROVIDE CARE UNTIL REPORT GIVEN TO ONCOMING RN.
[2021-05-14 05:44] LABS: BASOPHILS ABSOLUTE AUTO 0.02 K/mm3 (0.00-0.23); BASOPHILS PERCENT AUTO 0 % (0-2); EOSINOPHILS ABSOLUTE AUTO 0.08 K/mm3 (0.00-0.68); EOSINOPHILS PERCENT AUTO 1 % (0-6); Hematocrit 31.9 % (33.0-51.0); Hemoglobin 10.5 g/dL (11.5-16.0); IMMATURE GRAN PERCENT AUTO 1 % (0-1); LYMPHOCYTES ABSOLUTE AUTO 2.84 K/mm3 (0.84-5.20); LYMPHOCYTES PERCENT AUTO 27 % (21-46); MONOCYTES ABSOLUTE AUTO 0.69 K/mm3 (0.16-1.47); MONOCYTES PERCENT AUTO 7 % (4-13); Mean Corpuscular HGB 27.3 pg (26.0-34.0); Mean Corpuscular HGB Conc 32.9 g/dL (31.5-36.5); Mean Corpuscular Volume 83 fL (80-100); Mean Platelet Volume 10.4 fL (9.1-12.4); NEUTROPHILS ABSOLUTE AUTO 6.81 K/mm3 (1.96-9.15); NEUTROPHILS PERCENT AUTO 65 % (41-73); Platelet Count 275 K/mm3 (150-400); RDW Coefficient Variation 15.8 % (11.7-14.2); Red Blood Cell Count 3.85 M/mm3 (3.80-5.20); White Blood Cell Count 10.54 K/mm3 (4.00-11.30)
[2021-05-14 06:04] LABS: Anion Gap 6 mmol/L (6-16); Blood Urea Nitrogen 12 mg/dL (8-24); Bun/Creatinine Ratio 18.4 (12.0-20.0); CO2, Blood 26 mmol/L (21-32); Calcium, Blood 8.4 mg/dL (8.5-10.1); Chloride, Blood 101 mmol/L (98-108); Creatinine, Blood 0.65 mg/dL (0.40-1.00); Glomerular Filtration Rate >60 (60-); Glucose, Blood 178 mg/dL (70-99); Potassium, Blood 4.4 mmol/L (3.5-5.5); Sodium, Blood 133 mmol/L (136-145)
[2021-05-14 10:58] LABS: BASOPHILS ABSOLUTE AUTO 0.02 K/mm3 (0.00-0.23); BASOPHILS PERCENT AUTO 0 % (0-2); EOSINOPHILS PERCENT AUTO 1 % (0-6); Hematocrit 33.4 % (33.0-51.0); Hemoglobin 10.7 g/dL (11.5-16.0); IMMATURE GRAN ABSOLUTE AUTO 0.12 K/mm3 (0.00-0.10); IMMATURE GRAN PERCENT AUTO 1 % (0-1); LYMPHOCYTES ABSOLUTE AUTO 2.81 K/mm3 (0.84-5.20); LYMPHOCYTES PERCENT AUTO 25 % (21-46); MONOCYTES ABSOLUTE AUTO 0.74 K/mm3 (0.16-1.47); MONOCYTES PERCENT AUTO 7 % (4-13); Mean Corpuscular HGB 26.8 pg (26.0-34.0); Mean Corpuscular Volume 84 fL (80-100); Mean Platelet Volume 11.1 fL (9.1-12.4); NEUTROPHILS ABSOLUTE AUTO 7.62 K/mm3 (1.96-9.15); NEUTROPHILS PERCENT AUTO 67 % (41-73); Platelet Count 293 K/mm3 (150-400); RDW Coefficient Variation 15.9 % (11.7-14.2); RDW Standard Deviation 48.5 fL (35.1-46.3); Red Blood Cell Count 3.99 M/mm3 (3.80-5.20); White Blood Cell Count 11.41 K/mm3 (4.00-11.30)
[2021-05-14 11:13] LABS: Anion Gap 7 mmol/L (6-16); Blood Urea Nitrogen 11 mg/dL (8-24); Bun/Creatinine Ratio 16.7 (12.0-20.0); CO2, Blood 25 mmol/L (21-32); Calcium, Blood 8.6 mg/dL (8.5-10.1); Chloride, Blood 101 mmol/L (98-108); Creatinine, Blood 0.66 mg/dL (0.40-1.00); Glomerular Filtration Rate >60 (60-); Glucose, Blood 168 mg/dL (70-99); Potassium, Blood 4.8 mmol/L (3.5-5.5); Sodium, Blood 133 mmol/L (136-145)
[2021-05-14 11:32] LABS: International Normalized Ratio 1.11; Prothrombin Time Results 11.6 Sec (9.7-11.5)
[2021-05-14 13:03] LABS: U Amphetamine Screen Not Detected; U Barbituate Screen Not Detected; U Benzodiazapine Screen Not Detected; U Buprenorphine Screen Not Detected; U Cannabinoids Screen Not Detected; U Cocaine Screen Not Detected; U Methadone Screen Not Detected; U Methamphetamine Screen Not Detected; U Opiates Screen Not Detected; U Oxycodone Screen DETECTED; U Phencyclidine Screen Not Detected; U Propoxyphene Screen Not Detected
--- NOTE | 2021-05-14 15:42 | NUR ---
PT PREVIOUSLY UNDERWENT STUART PROCEDURE, TOLERATED WELL WITH NO DIFFICULTIES. AOX4, TAKEN BACK TO MEDICAL FLOOR ROOM 310 VIA GURNEY. DENIES PAIN WITH SWALLOWING, REMAINS NPO AT THIS TIME PER DR. GILLETTE'S ORDER. REPORT TO MEDICAL FLOOR [place].
--- NOTE | 2021-05-15 04:40 | NUR ---
SHIFT SUMMARY- PT. A&OX4, S/P L FOOT 2ND TOE AMPUTATION POD #3. HAD COMPLAINTS OF BACK PAIN, MEDICATED PER EMAR WITH MINIMAL EFFECT. PT. UP TO BSC W/WALKER AND 1PA, TOLREATING WELL. AWAKE MOST OF THE NIGHT, TOLERATING PO FLUIDS, VSS. CALL LIGHT WITHIN REACH AND SIDE RAILS UPX2. WILL CONT TO MONITOR.
[2021-05-15 05:36] LABS: BASOPHILS ABSOLUTE AUTO 0.01 K/mm3 (0.00-0.23); BASOPHILS PERCENT AUTO 0 % (0-2); EOSINOPHILS ABSOLUTE AUTO 0.09 K/mm3 (0.00-0.68); EOSINOPHILS PERCENT AUTO 1 % (0-6); Hematocrit 34.6 % (33.0-51.0); Hemoglobin 11.1 g/dL (11.5-16.0); IMMATURE GRAN ABSOLUTE AUTO 0.09 K/mm3 (0.00-0.10); IMMATURE GRAN PERCENT AUTO 1 % (0-1); LYMPHOCYTES ABSOLUTE AUTO 3.16 K/mm3 (0.84-5.20); LYMPHOCYTES PERCENT AUTO 26 % (21-46); MONOCYTES ABSOLUTE AUTO 0.79 K/mm3 (0.16-1.47); MONOCYTES PERCENT AUTO 6 % (4-13); Mean Corpuscular HGB 26.6 pg (26.0-34.0); Mean Corpuscular HGB Conc 32.1 g/dL (31.5-36.5); Mean Corpuscular Volume 83 fL (80-100); Mean Platelet Volume 9.9 fL (9.1-12.4); NEUTROPHILS ABSOLUTE AUTO 8.25 K/mm3 (1.96-9.15); NEUTROPHILS PERCENT AUTO 67 % (41-73); Platelet Count 320 K/mm3 (150-400); RDW Coefficient Variation 15.9 % (11.7-14.2); RDW Standard Deviation 48.1 fL (35.1-46.3); Red Blood Cell Count 4.17 M/mm3 (3.80-5.20); White Blood Cell Count 12.39 K/mm3 (4.00-11.30)
[2021-05-15 06:00] LABS: Albumin, Blood 1.8 g/dL (3.4-5.0); Anion Gap 5 mmol/L (6-16); Blood Urea Nitrogen 10 mg/dL (8-24); CO2, Blood 26 mmol/L (21-32); Calcium, Blood 8.5 mg/dL (8.5-10.1); Chloride, Blood 101 mmol/L (98-108); Creatinine, Blood 0.63 mg/dL (0.40-1.00); Glomerular Filtration Rate >60 (60-); Glucose, Blood 200 mg/dL (70-99); Magnesium, Blood 1.7 mg/dL (1.6-2.4); Phosphorus, Blood 3.6 mg/dL (2.5-4.9); Potassium, Blood 4.2 mmol/L (3.5-5.5); Sodium, Blood 132 mmol/L (136-145)
[2021-05-16 05:30] LABS: BASOPHILS ABSOLUTE AUTO 0.03 K/mm3 (0.00-0.23); BASOPHILS PERCENT AUTO 0 % (0-2); EOSINOPHILS PERCENT AUTO 1 % (0-6); Hematocrit 34.6 % (33.0-51.0); IMMATURE GRAN PERCENT AUTO 1 % (0-1); LYMPHOCYTES ABSOLUTE AUTO 3.33 K/mm3 (0.84-5.20); LYMPHOCYTES PERCENT AUTO 28 % (21-46); MONOCYTES ABSOLUTE AUTO 0.72 K/mm3 (0.16-1.47); MONOCYTES PERCENT AUTO 6 % (4-13); Mean Corpuscular HGB 26.6 pg (26.0-34.0); Mean Corpuscular HGB Conc 31.8 g/dL (31.5-36.5); Mean Corpuscular Volume 84 fL (80-100); Mean Platelet Volume 9.6 fL (9.1-12.4); NEUTROPHILS ABSOLUTE AUTO 7.47 K/mm3 (1.96-9.15); NEUTROPHILS PERCENT AUTO 64 % (41-73); Platelet Count 340 K/mm3 (150-400); RDW Coefficient Variation 15.9 % (11.7-14.2); RDW Standard Deviation 48.7 fL (35.1-46.3); Red Blood Cell Count 4.14 M/mm3 (3.80-5.20); White Blood Cell Count 11.75 K/mm3 (4.00-11.30)
--- NOTE | 2021-05-16 05:49 | NUR ---
SHIFT SUMMARY- NO ACUTE EVENTS OVERNIGHT. MEDICATED PT. 2X LAST NIGHT FOR C/O LOWER BACK AND L KNEE PAIN WITH GOOD EFFECT. PT. SHOWING IMPROVEMENT IN MOBILITY OF THE LE. PT. SLEPT T/O THE NIGHT, NO APPARENT DISTRESS NOTED, VSS. CALL LIGHT WITHIN REACH AND SIDE RAILS UPX3. WILL CONT TO MONITOR.
[2021-05-16] MEDS ORDERED: Acetaminophen650 M1 PO (17:14)
[2021-05-16] MEDS ORDERED: LOPE2C PO (17:14)
[2021-05-16] MEDS ORDERED: OXYC5 PO (17:15)
[2021-05-16] MEDS ORDERED: POTA10T PO (17:15)
[2021-05-16] MEDS ORDERED: VISBIOME 112.51 EACH PO (17:16)
[2021-05-16] MEDS ORDERED: CEFTRIAXONE2 G1 IV (17:16)
== END 2021-05-16 17:30 | disposition home health service (06) | DRG 854 ==
LOC: ER 17:07 → MEDS 19:12
PROVIDERS: Family Medicine; Internal Medicine; Internal Medicine Cardiovascular Disease; Orthopaedic Surgery; Physician Assistant; Student in an Organized Health Care Education/Training Program; ADMIT Internal Medicine
PROC: 0Y6S0Z1 Detachment at Left 2nd Toe, High, Open Approach (ICD-10-PCS; principal; 2021-05-12 14:00)
DX: A41.01 Sepsis due to Methicillin susceptible Staphylococcus aureus (principal); E87.1 Hypo-osmolality and hyponatremia; M86.8X7 Other osteomyelitis, ankle and foot; K52.1 Toxic gastroenteritis and colitis; E03.9 Hypothyroidism, unspecified; Z98.51 Tubal ligation status; Z20.822 Contact with and (suspected) exposure to COVID-19; Z90.49 Acquired absence of other specified parts of digestive tract; Z88.1 Allergy status to other antibiotic agents; Z88.8 Allergy status to other drugs, medicaments and biological substances; Z91.030 Bee allergy status; E87.6 Hypokalemia; T36.95XA Adverse effect of unspecified systemic antibiotic, initial encounter; Z79.4 Long term (current) use of insulin; Z79.899 Other long term (current) drug therapy; E11.69 Type 2 diabetes mellitus with other specified complication; E66.01 Morbid (severe) obesity due to excess calories
CPT/HCPCS: 36415; 71045; 72131; 73620; 73701; 80048; 80053; 80069; 81001; 82947; 83605; 83735; 84443; 85025; 85610; 87040; 87071; 87075; 87077; 87086; 87147; 87186; 87205; 88305; 88311; 93005; 93010; 93306; 93312; 93325; 93922; 94762; 96365-59; 96366; 96375-59; 97110; 97116; 97161; 97530; 99152; 99285-25; A9270; J0690; J0696; J1100; J1650; J1815; J2250; J2310; J2405; J2704; J3010; J3370; J7030; J7040; J7050; J7120; Q9967; U0004

== ENCOUNTER 2021-05-24 13:33 | Emergency (ER) | payer OTHER ==
[~2021-05-24] VITALS: Ht 172.7 cm; Wt 158.8 kg
[~2021-05-24 13:33] MED LIST changes: +Acetaminophen650 M1 PO; +CEFTRIAXONE2 G1 IV; +GLIP10ER PO; +LOPE2C PO; +OXYC5 PO; +Oxybutynin Chlor5 M1 PO; +POTA10T PO; +VISBIOME 112.51 EACH PO
--- NOTE | 2021-05-24 17:33 | NUR ---
AN ATTEMPTED TO PLACE A NEW POWERGLIDE IN PTS JOSEPH WAS UNSUCCESSFUL.
== END 2021-05-24 16:31 | disposition home or self-care (01) ==
LOC: ER 13:33
DX: T82.534A Leakage of infusion catheter, initial encounter (principal); E11.9 Type 2 diabetes mellitus without complications; E03.9 Hypothyroidism, unspecified; Z91.030 Bee allergy status; Z88.1 Allergy status to other antibiotic agents; Z79.899 Other long term (current) drug therapy; Z79.4 Long term (current) use of insulin; Z89.422 Acquired absence of other left toe(s)
CPT/HCPCS: 99283

== ENCOUNTER → 2021-12-23 | Outpatient (CLI) | payer OTHER | END | disposition home or self-care (01) | LOC: LAB SHORT 13:08 → LAB 13:08 → LAB SHORT 12-24 13:08 | DX: E11.65 Type 2 diabetes mellitus with hyperglycemia (principal) | CPT/HCPCS: 82043 ==